=== PATIENT | female | born 1990 | race Caucasian/White ===

== ENCOUNTER 2023-09-09 02:47 | Emergency (ER) | payer MEDICAID ==
[~2023-09-09] VITALS: Ht 170.2 cm; Wt 75.0 kg
[2023-09-09 02:53] VITALS: BP 112/84; PULSE 81; RESP 16; TEMP 98.4; O2SAT 99
[2023-09-09] MEDS ORDERED: ACETAMINOPHEN 325MG TABLET PO ONE (03:30)
[2023-09-09] MEDS ORDERED: LIDOCAINE HCL 1% 20ML VIAL (Pyxis) INJ INFIL ONE (03:30)
[2023-09-09] MEDS ORDERED: BACITRACIN 15GM TUBE TOP ONE (03:30)
[2023-09-09] MEDS ORDERED: TETANUS, DIPHTHERIA, PERTUSSIS VAC/PF 0.5ML (>10YR OLD) IM ONE (03:30)
[2023-09-09 04:36] LABS: HCG SCREEN NEGATIVE
[2023-09-09] MEDS ORDERED: ACET-2708 MT (05:30)
== END 2023-09-09 07:51 | disposition home or self-care (01) ==
LOC: ER 02:55
DX: S00.03XA Contusion of scalp, initial encounter (principal); S60.811A Abrasion of right wrist, initial encounter; R51.9 Headache, unspecified; Z88.0 Allergy status to penicillin; Y04.0XXA Assault by unarmed brawl or fight, initial encounter; Y93.89 Activity, other specified; Y92.89 Other specified places as the place of occurrence of the external cause; Y99.8 Other external cause status
CPT/HCPCS: 84703; 73130; 70450; 99284; J3490; Z7610